=== PATIENT | male | born 1990 | race American Indian/Alaskan Native ===

== ENCOUNTER 2019-08-26 09:42 | Emergency (ER) | payer BC ==
[~2019-08-26] VITALS: Ht 177.8 cm; Wt 72.6 kg
[2019-08-26 10:01] VITALS: BP 139/100; Ht 177.8 cm; Wt 72.6 kg
== END 2019-08-26 10:37 | disposition home or self-care (01) ==
LOC: ED 09:42
DX: R06.02 Shortness of breath (principal); R42 Dizziness and giddiness; Z02.79 Encounter for issue of other medical certificate